=== PATIENT | female | born 1970 | race Caucasian/White ===

== ENCOUNTER 2020-05-01 08:39 | Emergency (ER) | payer SELFPAY ==
[~2020-05-01] VITALS: Ht 170 cm; Wt 69.9 kg
[~2020-05-01 08:39] MED LIST: CEPH500C PO; SILV25CR TP
[2020-05-01 08:45] VITALS: BP 136/87
--- NOTE | 2020-05-01 08:49 | ED General ---
General Stated Complaint: POSS ALLERGIC REACTION History of Present Illness Date Seen by Provider: May 01, 2020 Time Seen by Provider: 08:49 Initial Comments 49-year-old female presents with what appears to be allergic reaction. She has some swelling around her bilateral lower eyes, little bit of swelling around her lips, rash on her left forearm. She reports that she noticed the rash last night and that this morning she woke up with a little bit of puffiness around her eyes and lips. She has no difficulty swallowing, breathing or other airway issues. 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 Patient with no other systemic complaints. Allergies and Home Medications Allergies Coded Allergies: No Known Allergies (Verified Allergy, Unknown, 04/07/05) Home Medications Cephalexin Monohydrate 500 Mg Capsule, 2 EACH PO BID Prescribed by: LAURITA KANG DO on 07/17/091716 Silver Sulfadiazine 25 Gm Cream.gm., 25 GM TP ONCE Prescribed by: LAURITA KANG DO on 07/17/091716 Patient Home Medication List Home Medication List Reviewed: Yes Review of Systems Review of Systems Constitutional: No chills, No fever EENTM: see HPI; No throat swelling Respiratory: No cough, No short of breath Gastrointestinal: No abdominal pain, No diarrhea, No nausea Musculoskeletal: no symptoms reported Skin: see HPI Psychiatric/Neurological: No Symptoms Reported Hematologic/Lymphatic: No Symptoms Reported Immunological/Allergic: no symptoms reported Past [id number]-[id number] Hx Past Med/Social Hx: Reviewed Nursing Past Med/Soc Hx Physical Exam Vital Signs Capillary Refill : Height, Weight, BMI Height: '" Weight: lbs. oz. kg; BMI Method:Stated General Appearance: No Apparent Distress, WD/WN Eyes: Bilateral Eye PERRL, Bilateral Eye EOMI HEENT: Other (Mild puffiness under her bilateral eyes consistent with allergic reaction, very minimal swelling around the lips. Otherwise normal ENT inspection) Neck: Full Range of Motion, Normal Inspection Respiratory: Lungs Clear, Normal Breath Sounds Cardiovascular: Regular Rate, Rhythm, No Edema Gastrointestinal: Non Tender, Soft Extremity: Normal Capillary Refill Skin: Rash (Erythematous rash left forearm consistent with contact dermatitis) Progress/Results/Core Measures Suspected Sepsis SIRS Temperature: Pulse: Respiratory Rate: Blood Pressure / Mean: Results/Orders Vital Signs/I&O Capillary Refill : Progress Note : Progress Note Patient with what appears to be a contact dermatitis. We will treat her with Medrol Dosepak and Benadryl 25 to 50 mg every 6-8 hours as needed. She should follow-up with her primary care provider as needed Departure Impression Primary Impression: Contact dermatitis Qualified Codes: L25.9 - Unspecified contact dermatitis, unspecified cause Additional Impression: Allergic reaction Qualified Codes: T78.40XA - Allergy, unspecified, initial encounter Disposition: HOME, SELF-CARE Condition: Stable Departure-Patient Inst. Referrals: NO,LOCAL PHYSICIAN (PCP/Family) Primary Care Physician Patient Instructions: Allergic Reaction ED, Contact Dermatitis (DC) Add. Discharge Instructions: 25 to 50 mg of Benadryl every 6-8 hours as needed Follow-up with your primary care provider in 1 week if symptoms have not improved Return to the ER with any difficulty swallowing, feelings of shortness of breath or other concerns Scripts Methylprednisolone (Methylprednisolone Dose Pack) 4 Mg Tab.ds.pk 4 MG PO UD for 6 Days, #21 PKG PER DOSE PACK INSTRUCTIONS Prov: DEON ROSAS DO 05/01/20 DEON ROSAS DO May 01, 2020 08:49
[2020-05-01] MEDS ORDERED: METH4TAB10 PO (09:00)
== END 2020-05-01 09:03 | disposition home or self-care (01) ==
LOC: EDUNIT# 08:39 → ER 08:44
DX: L23.9 Allergic contact dermatitis, unspecified cause (principal)
CPT/HCPCS: 99282